=== PATIENT | female | born 1990 | race Caucasian/White ===

== ENCOUNTER 2020-06-02 22:08 | Emergency (ER) | payer OTHER ==
[~2020-06-02] VITALS: Ht 167.6 cm; Wt 76.0 kg
[2020-06-02 23:22] VITALS: BP 105/64
[2020-06-03] MEDS ORDERED: FLUORESCEIN SODIUM 1MG/STRIP RIGHTEYE ONE (00:45)
[2020-06-03] MEDS ORDERED: TETRACAINE 0.5% OPHTH DROPS 4ML RIGHTEYE ONE (00:45)
[2020-06-03] MEDS ORDERED: POLY10DR RIGHTEYE (01:12)
== END 2020-06-03 01:18 | disposition home or self-care (01) ==
LOC: ER 22:08
DX: H10.211 Acute toxic conjunctivitis, right eye (principal)
CPT/HCPCS: 99283